=== PATIENT | female | born 1940 ===

== ENCOUNTER 2017-03-22 12:59 | Inpatient (IN) | payer OTHER ==
[~2017-03-22] VITALS: Ht 165.1 cm; Wt 84.6 kg
[2017-03-22 17:06] LABS: ANION GAP 13 MEQ/L (2-14); CHLORIDE 96 MEQ/L (99-109); GFR ESTIMATE (CALCULATED) > 59 mL/min/; GLUCOSE 245 mg/dL (70-99); POTASSIUM 3.8 MEQ/L (3.7-5.4); SAMPLE HEMOLYSIS CHECK 0; SAMPLE ICTERIC CHECK 0; SAMPLE LIPEMIA CHECK 0; SODIUM 130 MEQ/L (136-147); UREA NITROGEN (BUN) 16 mg/dL (9-23)
[2017-03-22 18:00] VITALS: BP 143/58
[2017-03-22 18:15] VITALS: BP 109/55
[2017-03-22 19:00] VITALS: BP 143/45
[2017-03-22 19:13] LABS: METH RESISTANT S AUREUS PCR NEGATIVE (NEGATIVE)
[2017-03-22 19:19] LABS: PROBE CHECK PASS; SPECIMEN PROCESSING CONTROL PASS
[2017-03-22 20:00] VITALS: BP 138/60
[2017-03-22 20:43] LABS: EOSINOPHIL (%) 0.1 % (0-5); HEMATOCRIT 28.9 % (36.0-46.0); IMMATURE GRANULOCYTE (%) 0.7 % (0.0-0.7); IMMATURE GRANULOCYTE COUNT 0.1 K/uL; LYMPHOCYTE COUNT 1.7 K/uL (1.0-2.8); MCH 26.6 PG (29.0-34.0); MCHC 32.2 G/DL (30.0-36.0); MCV 82.8 FL (83-99); MEAN PLAT.VOLUME 10.3 uM^3 (9.5-12.4); MONOCYTE (%) 8.4 % (3-12); MONOCYTE COUNT 1.6 K/uL (0-0.8); NEUTROPHIL (%) 81.3 % (45-76); NRBC (%) 0.1 /100 WBC (0-0); PLATELET COUNT 320 K/uL (156-360); RBC DIS.WIDTH-CV 14.3 % (11.8-14.6); RBC DIS.WIDTH-SD 42.4 % (39-53); RED BLOOD COUNT 3.49 M/uL (3.80-5.20); WHITE BLOOD COUNT 18.5 K/uL (4.1-10.2)
[2017-03-22 20:59] LABS: ALKALINE PHOSPHATASE 64 IU/L (3-129); ANION GAP 12 MEQ/L (2-14); CHLORIDE 99 MEQ/L (99-109); GFR ESTIMATE (CALCULATED) > 59 mL/min/; GLUCOSE 276 mg/dL (70-99); MAGNESIUM 1.3 mg/dl (1.3-2.7); POTASSIUM 3.7 MEQ/L (3.7-5.4); SAMPLE HEMOLYSIS CHECK 0; SAMPLE ICTERIC CHECK 0; SAMPLE LIPEMIA CHECK 0; SODIUM 133 MEQ/L (136-147); TOTAL BILIRUBIN 0.5 MG/DL (0.0-1.0); UREA NITROGEN (BUN) 17 mg/dL (9-23)
[2017-03-22 20:59] LABS: COMMENTS - BLOOD GASES C+A+; DEVICE VENT; FI02 60 %; MECHANICAL RATE 16 resp/min; MODE AC; PCO2 32 mm Hg (35-45); PEEP 5 CM/H20; PO2 250 mm Hg (80-100); SITE LR; TIDAL VOLUME 400 ML; TOTAL RESP RATE 16 resp/min; pH 7.51 (7.35-7.45)
[2017-03-22 21:00] VITALS: BP 126/46
[2017-03-22 21:00] LABS: BASE EXCESS 2.5 mEq/L (-3 to +3); BICARBONATE 25.5 mEq/L (22-26); CARBOXY HGB 1.5 % (0-5); METHEMOGLOBIN 1.9 % (0-1.5)
[2017-03-22 22:00] VITALS: BP 114/43
[2017-03-23] VITALS (23 sets, daily range): BP systolic 128–165; BP diastolic 43–94
[2017-03-23 00:04] LABS: POINT-OF-CARE METER ID UU13113748
[2017-03-23 05:43] LABS: POINT-OF-CARE METER ID UU14174217
[2017-03-23 05:47] LABS: EOSINOPHIL (%) 0 % (0-5); HEMATOCRIT 29.9 % (36.0-46.0); IMMATURE GRANULOCYTE (%) 0.8 % (0.0-0.7); IMMATURE GRANULOCYTE COUNT 0.2 K/uL; INSTRUMENT ABS NEUTROPHIL CT 19.5 K/uL; LYMPHOCYTE COUNT 1.9 K/uL (1.0-2.8); MCH 26.8 PG (29.0-34.0); MCHC 32.8 G/DL (30.0-36.0); MCV 81.9 FL (83-99); MEAN PLAT.VOLUME 10.4 uM^3 (9.5-12.4); MONOCYTE (%) 11.4 % (3-12); MONOCYTE COUNT 2.8 K/uL (0-0.8); NEUTROPHIL (%) 79.7 % (45-76); NEUTROPHIL COUNT 19.5 K/uL (1.8-6.4); PLATELET COUNT 304 K/uL (156-360); RBC DIS.WIDTH-CV 14.6 % (11.8-14.6); RBC DIS.WIDTH-SD 42.7 % (39-53); RED BLOOD COUNT 3.65 M/uL (3.80-5.20); WHITE BLOOD COUNT 24.5 K/uL (4.1-10.2)
[2017-03-23 06:01] LABS: ANION GAP 12 MEQ/L (2-14); CHLORIDE 102 MEQ/L (99-109); GFR ESTIMATE (CALCULATED) > 59 mL/min/; GLUCOSE 268 mg/dL (70-99); POTASSIUM 4.1 MEQ/L (3.7-5.4); SAMPLE HEMOLYSIS CHECK 0; SAMPLE ICTERIC CHECK 0; SAMPLE LIPEMIA CHECK 0; SODIUM 139 MEQ/L (136-147); UREA NITROGEN (BUN) 16 mg/dL (9-23)
[2017-03-23 06:15] LABS: BICARBONATE 26.7 mEq/L (22-26); CARBOXY HGB 0 % (0-5); COMMENTS - BLOOD GASES C+A+; DEVICE VENT; FI02 40 %; MECHANICAL RATE 16 resp/min; METHEMOGLOBIN 0 % (0-1.5); MODE AC; PCO2 32 mm Hg (35-45); PEEP 5 CM/H20; PO2 152 mm Hg (80-100); SITE RR; TIDAL VOLUME 400 ML; TOTAL RESP RATE 18 resp/min; pH 7.53 (7.35-7.45)
[2017-03-23] MEDS ORDERED: SYNTHROID100 MCG PO (09:28)
[2017-03-23] MEDS ORDERED: COZAAR100 MG PO (09:28)
[2017-03-23] MEDS ORDERED: BISOPROLOL FUMAR5 MG PO (09:28)
[2017-03-23] MEDS ORDERED: LASIX20 MG PO (09:28)
[2017-03-23] MEDS ORDERED: TRAMADOL HCL50 MG PO (09:29)
[2017-03-23] MEDS ORDERED: MICRONASE5 MG PO (09:29)
[2017-03-23] MEDS ORDERED: MAGOX 400400 MG PO (09:29)
[2017-03-23] MEDS ORDERED: GLUCOPHAGE500 MG PO (09:29)
[2017-03-23 11:55] LABS: POINT-OF-CARE METER ID UU14174217
[2017-03-23 16:23] LABS: ADD MIUA? YES; BILIRUBIN NEGATIVE; BLOOD MODERATE; COLOR YELLOW ((YELLOW)); GLUCOSE (STRIP) NEGATIVE; KETONES 20; LEUKOCYTES NEGATIVE; NITRITE NEGATIVE; PROTEIN (STRIP) 100; SPECIFIC GRAVITY 1.019 (1.000-1.030); UROBILINOGEN 0.2 MG/DL (0.2-1.0)
[2017-03-23 16:30] LABS: BACTERIA NONE SEEN /HPF; EPITHELIAL CELLS NONE SEEN /HPF; MUCUS NONE SEEN /LPF; RED BLOOD CELLS 0-5 /HPF (0-5); WHITE BLOOD CELLS 0-5 /HPF (0-5)
[2017-03-23 18:34] LABS: POINT-OF-CARE METER ID UU14174217
[2017-03-23 23:58] LABS: POINT-OF-CARE METER ID UU14174217
[2017-03-24] VITALS (24 sets, daily range): BP systolic 130–176; BP diastolic 51–90
[2017-03-24 05:54] LABS: HEMATOCRIT 23.9 % (36.0-46.0); MCH 27.5 PG (29.0-34.0); MCHC 32.6 G/DL (30.0-36.0); MCV 84.2 FL (83-99); MEAN PLAT.VOLUME 10.6 uM^3 (9.5-12.4); PLATELET COUNT 263 K/uL (156-360)
[2017-03-24 05:55] LABS: RED BLOOD COUNT 2.84 M/uL (3.80-5.20)
[2017-03-24 06:01] LABS: ANION GAP 13 MEQ/L (2-14); CHLORIDE 109 MEQ/L (99-109); GFR ESTIMATE (CALCULATED) > 59 mL/min/; GLUCOSE 264 mg/dL (70-99); POTASSIUM 3.6 MEQ/L (3.7-5.4); SAMPLE HEMOLYSIS CHECK 0; SAMPLE ICTERIC CHECK 0; SAMPLE LIPEMIA CHECK 0; SODIUM 142 MEQ/L (136-147); UREA NITROGEN (BUN) 10 mg/dL (9-23)
[2017-03-24 06:23] LABS: POINT-OF-CARE METER ID UU13113803
[2017-03-24 12:12] LABS: POINT-OF-CARE METER ID UU13113803
[2017-03-24 18:36] LABS: POINT-OF-CARE METER ID UU13113803
[2017-03-25] VITALS (24 sets, daily range): BP systolic 142–199; BP diastolic 54–86
[2017-03-25 00:24] LABS: POINT-OF-CARE METER ID UU13113803
[2017-03-25 05:50] LABS: POINT-OF-CARE METER ID UU14174217; POINT-OF-CARE USER ID 606021424
[2017-03-25 08:51] LABS: HEMATOCRIT 24.4 % (36.0-46.0); MCH 26.7 PG (29.0-34.0); MCHC 31.6 G/DL (30.0-36.0); MCV 84.7 FL (83-99); MEAN PLAT.VOLUME 10.4 uM^3 (9.5-12.4); PLATELET COUNT 255 K/uL (156-360); RBC DIS.WIDTH-CV 15.3 % (11.8-14.6); RBC DIS.WIDTH-SD 47.5 % (39-53); RED BLOOD COUNT 2.88 M/uL (3.80-5.20); WHITE BLOOD COUNT 20.3 K/uL (4.1-10.2)
[2017-03-25 09:58] LABS: ANION GAP 14 MEQ/L (2-14); CHLORIDE 109 MEQ/L (99-109); GFR ESTIMATE (CALCULATED) > 59 mL/min/; GLUCOSE 224 mg/dL (70-99); POTASSIUM 3.9 MEQ/L (3.7-5.4); SAMPLE HEMOLYSIS CHECK 0; SAMPLE ICTERIC CHECK 0; SAMPLE LIPEMIA CHECK 0; SODIUM 140 MEQ/L (136-147); UREA NITROGEN (BUN) 11 mg/dL (9-23)
[2017-03-25 12:48] LABS: POINT-OF-CARE METER ID UU14314083
[2017-03-25 17:26] LABS: POINT-OF-CARE METER ID UU14174217
[2017-03-26] VITALS (24 sets, daily range): BP systolic 113–173; BP diastolic 45–82
[2017-03-26 00:54] LABS: POINT-OF-CARE METER ID UU14174217
[2017-03-26 05:43] LABS: POINT-OF-CARE METER ID UU13113731
[2017-03-26 05:45] LABS: HEMATOCRIT 23.8 % (36.0-46.0); MCH 26.5 PG (29.0-34.0); MCHC 31.5 G/DL (30.0-36.0); MCV 84.1 FL (83-99); MEAN PLAT.VOLUME 10.4 uM^3 (9.5-12.4); PLATELET COUNT 253 K/uL (156-360); RBC DIS.WIDTH-CV 15.4 % (11.8-14.6); RBC DIS.WIDTH-SD 47.2 % (39-53); RED BLOOD COUNT 2.83 M/uL (3.80-5.20); WHITE BLOOD COUNT 19.3 K/uL (4.1-10.2)
[2017-03-26 06:10] LABS: ALKALINE PHOSPHATASE 72 IU/L (3-129); ANION GAP 18 MEQ/L (2-14); CHLORIDE 109 MEQ/L (99-109); GFR ESTIMATE (CALCULATED) > 59 mL/min/; GLUCOSE 241 mg/dL (70-99); POTASSIUM 3.6 MEQ/L (3.7-5.4); SAMPLE HEMOLYSIS CHECK 0; SAMPLE ICTERIC CHECK 0; SAMPLE LIPEMIA CHECK 0; SODIUM 144 MEQ/L (136-147); TOTAL BILIRUBIN 0.7 MG/DL (0.0-1.0); UREA NITROGEN (BUN) 13 mg/dL (9-23)
[2017-03-26 12:44] LABS: POINT-OF-CARE METER ID UU14174217
[2017-03-26 18:20] LABS: POINT-OF-CARE METER ID UU13113748
[2017-03-27] VITALS (25 sets, daily range): BP systolic 119–195; BP diastolic 43–95
[2017-03-27 01:09] LABS: POINT-OF-CARE METER ID UU13113731
[2017-03-27 06:16] LABS: POINT-OF-CARE METER ID UU13113731
[2017-03-27 10:55] LABS: HEMATOCRIT 23.2 % (36.0-46.0); RED BLOOD COUNT 2.81 M/uL (3.80-5.20); WHITE BLOOD COUNT 15.7 K/uL (4.1-10.2)
[2017-03-27 10:56] LABS: EOSINOPHIL (%) 0.2 % (0-5); IMMATURE GRANULOCYTE COUNT 0.2 K/uL; INSTRUMENT ABS NEUTROPHIL CT 12.2 K/uL; LYMPHOCYTE COUNT 1.9 K/uL (1.0-2.8); MCH 26.7 PG (29.0-34.0); MCHC 32.3 G/DL (30.0-36.0); MCV 82.6 FL (83-99); MEAN PLAT.VOLUME 10.6 uM^3 (9.5-12.4); MONOCYTE (%) 8.2 % (3-12); MONOCYTE COUNT 1.3 K/uL (0-0.8); NEUTROPHIL (%) 78.1 % (45-76); NEUTROPHIL COUNT 12.2 K/uL (1.8-6.4); PLATELET COUNT 308 K/uL (156-360); RBC DIS.WIDTH-CV 15.3 % (11.8-14.6); RBC DIS.WIDTH-SD 45.9 % (39-53)
[2017-03-27 11:33] LABS: ANION GAP 10 MEQ/L (2-14); CHLORIDE 108 MEQ/L (99-109); GFR ESTIMATE (CALCULATED) > 59 mL/min/; GLUCOSE 378 mg/dL (70-99); POTASSIUM 3.2 MEQ/L (3.7-5.4); SAMPLE HEMOLYSIS CHECK 0; SAMPLE ICTERIC CHECK 0; SAMPLE LIPEMIA CHECK 0; SODIUM 142 MEQ/L (136-147); UREA NITROGEN (BUN) 20 mg/dL (9-23)
[2017-03-27 12:03] LABS: POINT-OF-CARE METER ID UU14162636
[2017-03-27 18:00] LABS: POINT-OF-CARE METER ID UU14162636
[2017-03-27 22:21] LABS: ADD MIUA? YES; BILIRUBIN NEGATIVE; BLOOD NEGATIVE; COLOR AMBER ((YELLOW)); GLUCOSE (STRIP) 150; KETONES NEGATIVE; LEUKOCYTES LARGE; NITRITE NEGATIVE; PROTEIN (STRIP) 100; SPECIFIC GRAVITY 1.025 (1.000-1.030)
[2017-03-27 23:03] LABS: BACTERIA 3+ /HPF; CELLULAR CASTS 0-5 /LPF; EPITHELIAL CELLS RARE /HPF; HYALINE CASTS 0-5 /LPF; MUCUS TRACE /LPF; RED BLOOD CELLS 0-5 /HPF (0-5); UCUL ADDED? YES; WHITE BLOOD CELLS TNTC /HPF (0-5); WHITE BLOOD CELLS CLUMP MANY /HPF (0-5)
[2017-03-28] VITALS (24 sets, daily range): BP systolic 126–182; BP diastolic 46–76
[2017-03-28 00:44] LABS: POINT-OF-CARE METER ID UU14162636
[2017-03-28 03:03] LABS: EOSINOPHIL (%) 0.2 % (0-5); HEMATOCRIT 22.8 % (36.0-46.0); IMMATURE GRANULOCYTE (%) 1.2 % (0.0-0.7); IMMATURE GRANULOCYTE COUNT 0.3 K/uL; INSTRUMENT ABS NEUTROPHIL CT 15.9 K/uL; LYMPHOCYTE COUNT 2.5 K/uL (1.0-2.8); MCH 26.4 PG (29.0-34.0); MCV 82.6 FL (83-99); MEAN PLAT.VOLUME 10.5 uM^3 (9.5-12.4); MONOCYTE (%) 8.6 % (3-12); MONOCYTE COUNT 1.8 K/uL (0-0.8); NEUTROPHIL (%) 77.7 % (45-76); NEUTROPHIL COUNT 15.9 K/uL (1.8-6.4); PLATELET COUNT 293 K/uL (156-360); RBC DIS.WIDTH-CV 15.8 % (11.8-14.6); RBC DIS.WIDTH-SD 46.9 % (39-53); RED BLOOD COUNT 2.76 M/uL (3.80-5.20); WHITE BLOOD COUNT 20.4 K/uL (4.1-10.2)
[2017-03-28 03:16] LABS: MAGNESIUM 1.3 mg/dL (1.3-2.7)
[2017-03-28 03:17] LABS: CHLORIDE 111 mEq/L (99-109); GLUCOSE 314 mg/dL (70-99); POTASSIUM 3.3 mEq/L (3.7-5.4); SODIUM 143 mEq/L (136-147)
[2017-03-28 03:19] LABS: ANION GAP 12 MEQ/L (2-14)
[2017-03-28 03:21] LABS: GFR ESTIMATE (CALCULATED) > 59 mL/min/
[2017-03-28 03:22] LABS: UREA NITROGEN (BUN) 19 mg/dL (9-23)
[2017-03-28 04:20] LABS: HDL CHOLESTEROL 17 MG/DL (Desirable>=50); LDL CHOLESTEROL 77 mg/dL (Desirable<100); NON-HDL CHOLESTEROL 95 mg/dL (Desirable<160); SAMPLE HEMOLYSIS CHECK 0; SAMPLE ICTERIC CHECK 0; SAMPLE LIPEMIA CHECK 0; TOTAL CHOLESTEROL 112 mg/dL (Desirable<200); TRIGLYCERIDES 91 MG/DL (Normal: <150)
[2017-03-28 05:23] LABS: BASE EXCESS 1.8 mEq/L (-3 to +3); BICARBONATE 24.5 mEq/L (22-26); CARBOXY HGB 0.4 % (0-5); COMMENTS - BLOOD GASES C+A+; DEVICE VENT; FI02 30 %; MECHANICAL RATE 16 resp/min; METHEMOGLOBIN 0 % (0-1.5); MODE AC; PCO2 30 mm Hg (35-45); PO2 73 mm Hg (80-100); SITE RR; pH 7.52 (7.35-7.45)
[2017-03-28 05:24] LABS: PEEP 5 CM/H20; TIDAL VOLUME 500 ML; TOTAL RESP RATE 16 resp/min
[2017-03-28 06:02] LABS: POINT-OF-CARE METER ID UU14162636
[2017-03-28 08:32] LABS: Estimated Average Glucose 166 mg/dL (70-123); HEMOGLOBIN A1c (GLYCOHEMOGLOB) 7.4 % HGB (Below 5.7)
[2017-03-28 12:28] LABS: POINT-OF-CARE METER ID UU14162636
[2017-03-28 14:55] LABS: POINT-OF-CARE METER ID UU14162636
[2017-03-28 16:03] LABS: POINT-OF-CARE METER ID UU14162636
[2017-03-28 16:07] LABS: ANION GAP 9 MEQ/L (2-14); CHLORIDE 110 MEQ/L (99-109); POTASSIUM 3.4 MEQ/L (3.7-5.4); SAMPLE HEMOLYSIS CHECK 0; SAMPLE ICTERIC CHECK 0; SAMPLE LIPEMIA CHECK 0; SODIUM 142 MEQ/L (136-147)
[2017-03-28 16:12] LABS: GFR ESTIMATE (CALCULATED) > 59 mL/min/; GLUCOSE 275 mg/dL (70-99); UREA NITROGEN (BUN) 16 mg/dL (9-23)
[2017-03-28 17:10] LABS: POINT-OF-CARE METER ID UU14162636
[2017-03-28 18:10] LABS: POINT-OF-CARE METER ID UU14162636
[2017-03-28 19:27] LABS: POINT-OF-CARE METER ID UU14162636
[2017-03-28 20:03] LABS: ANION GAP 9 MEQ/L (2-14); CHLORIDE 111 MEQ/L (99-109); POTASSIUM 3.6 MEQ/L (3.7-5.4); SAMPLE HEMOLYSIS CHECK 0; SAMPLE ICTERIC CHECK 0; SAMPLE LIPEMIA CHECK 0; SODIUM 143 MEQ/L (136-147)
[2017-03-28 20:09] LABS: GFR ESTIMATE (CALCULATED) > 59 mL/min/; GLUCOSE 221 mg/dL (70-99); UREA NITROGEN (BUN) 17 mg/dL (9-23)
[2017-03-28 20:40] LABS: POINT-OF-CARE METER ID UU14162636
[2017-03-28 21:39] LABS: POINT-OF-CARE METER ID UU14162636
[2017-03-28 22:36] LABS: POINT-OF-CARE METER ID UU14162636
[2017-03-28 23:31] LABS: POINT-OF-CARE METER ID UU14162636
[2017-03-29] VITALS (24 sets, daily range): BP systolic 130–181; BP diastolic 49–72
[2017-03-29 00:14] LABS: POINT-OF-CARE METER ID UU14208751
[2017-03-29 00:57] LABS: CHLORIDE 113 mEq/L (99-109); POTASSIUM 3.4 mEq/L (3.7-5.4); SODIUM 141 mEq/L (136-147)
[2017-03-29 00:59] LABS: GLUCOSE 161 mg/dL (70-99)
[2017-03-29 01:00] LABS: ANION GAP 8 MEQ/L (2-14)
[2017-03-29 01:03] LABS: GFR ESTIMATE (CALCULATED) > 59 mL/min/
[2017-03-29 01:04] LABS: UREA NITROGEN (BUN) 17 mg/dL (9-23)
[2017-03-29 01:22] LABS: POINT-OF-CARE METER ID UU13113748; POINT-OF-CARE USER ID 609231305
[2017-03-29 02:33] LABS: POINT-OF-CARE METER ID UU13113748
[2017-03-29 03:34] LABS: POINT-OF-CARE METER ID UU13113748
[2017-03-29 04:32] LABS: POINT-OF-CARE METER ID UU13113748
[2017-03-29 05:24] LABS: ANION GAP 9 MEQ/L (2-14); CHLORIDE 111 MEQ/L (99-109); POTASSIUM 3.9 MEQ/L (3.7-5.4); SAMPLE HEMOLYSIS CHECK 0; SAMPLE ICTERIC CHECK 0; SAMPLE LIPEMIA CHECK 0; SODIUM 143 MEQ/L (136-147)
[2017-03-29 05:30] LABS: GFR ESTIMATE (CALCULATED) > 59 mL/min/; GLUCOSE 164 mg/dL (70-99); UREA NITROGEN (BUN) 20 mg/dL (9-23)
[2017-03-29 06:00] LABS: HEMATOCRIT 23.5 % (36.0-46.0); MCH 26.9 PG (29.0-34.0); MCHC 31.9 G/DL (30.0-36.0); MCV 84.2 FL (83-99); MEAN PLAT.VOLUME 11.6 uM^3 (9.5-12.4); PLATELET COUNT 284 K/uL (156-360); RBC DIS.WIDTH-CV 16.1 % (11.8-14.6); RBC DIS.WIDTH-SD 48.9 % (39-53); RED BLOOD COUNT 2.79 M/uL (3.80-5.20); WHITE BLOOD COUNT 18.5 K/uL (4.1-10.2)
[2017-03-29 06:31] LABS: POINT-OF-CARE METER ID UU13113748
[2017-03-29 07:33] LABS: POINT-OF-CARE METER ID UU13113748
[2017-03-29 08:16] LABS: POINT-OF-CARE METER ID UU13113748
[2017-03-29 08:45] LABS: ANION GAP 9 MEQ/L (2-14); CHLORIDE 111 MEQ/L (99-109); GFR ESTIMATE (CALCULATED) > 59 mL/min/; GLUCOSE 163 mg/dL (70-99); POTASSIUM 3.7 MEQ/L (3.7-5.4); SAMPLE HEMOLYSIS CHECK 0; SAMPLE ICTERIC CHECK 0; SAMPLE LIPEMIA CHECK 0; SODIUM 144 MEQ/L (136-147); UREA NITROGEN (BUN) 22 mg/dL (9-23)
[2017-03-29 10:20] LABS: POINT-OF-CARE METER ID UU13113748
[2017-03-29 11:28] LABS: POINT-OF-CARE METER ID UU13113748
[2017-03-29 12:25] LABS: POINT-OF-CARE METER ID UU13113748
[2017-03-29 12:56] LABS: ANION GAP 8 MEQ/L (2-14); CHLORIDE 109 MEQ/L (99-109); GFR ESTIMATE (CALCULATED) > 59 mL/min/; GLUCOSE 142 mg/dL (70-99); POTASSIUM 3.6 MEQ/L (3.7-5.4); SAMPLE HEMOLYSIS CHECK 0; SAMPLE ICTERIC CHECK 0; SAMPLE LIPEMIA CHECK 0; SODIUM 142 MEQ/L (136-147); UREA NITROGEN (BUN) 22 mg/dL (9-23)
[2017-03-29 18:17] LABS: POINT-OF-CARE METER ID UU13113748
[2017-03-30] VITALS (23 sets, daily range): BP systolic 104–171; BP diastolic 41–99
[2017-03-30 00:14] LABS: POINT-OF-CARE METER ID UU13113748
[2017-03-30 05:44] LABS: BASE EXCESS 4.6 mEq/L (-3 to +3); BICARBONATE 27.1 mEq/L (22-26); CARBOXY HGB 0 % (0-5); METHEMOGLOBIN 0.2 % (0-1.5); PCO2 31 mm Hg (35-45); pH 7.55 (7.35-7.45)
[2017-03-30 05:45] LABS: COMMENTS - BLOOD GASES A+C+; DEVICE VENT; FI02 30 %; MECHANICAL RATE 13 resp/min; MODE A/C; PEEP 5 CM/H20; PO2 55 mm Hg (80-100); SITE RR; TIDAL VOLUME 500 ML; TOTAL RESP RATE 14 resp/min
[2017-03-30 06:19] LABS: POINT-OF-CARE METER ID UU14314082
[2017-03-30 07:12] LABS: EOSINOPHIL (%) 0.7 % (0-5); EOSINOPHIL COUNT 0.1 K/uL (0-0.3); HEMATOCRIT 24.3 % (36.0-46.0); IMMATURE GRANULOCYTE (%) 3.4 % (0.0-0.7); IMMATURE GRANULOCYTE COUNT 0.6 K/uL; INSTRUMENT ABS NEUTROPHIL CT 13.8 K/uL; LYMPHOCYTE COUNT 1.8 K/uL (1.0-2.8); MCH 25.9 PG (29.0-34.0); MCHC 31.3 G/DL (30.0-36.0); MCV 82.9 FL (83-99); MONOCYTE (%) 6.7 % (3-12); MONOCYTE COUNT 1.2 K/uL (0-0.8); NEUTROPHIL (%) 78.7 % (45-76); NEUTROPHIL COUNT 13.8 K/uL (1.8-6.4); NRBC (%) 0.2 /100 WBC (0-0); RBC DIS.WIDTH-CV 15.9 % (11.8-14.6); RBC DIS.WIDTH-SD 47.5 % (39-53); RED BLOOD COUNT 2.93 M/uL (3.80-5.20); WHITE BLOOD COUNT 17.5 K/uL (4.1-10.2)
[2017-03-30 07:25] LABS: ANION GAP 11 MEQ/L (2-14); CHLORIDE 108 MEQ/L (99-109); GFR ESTIMATE (CALCULATED) > 59 mL/min/; GLUCOSE 146 mg/dL (70-99); POTASSIUM 4.1 MEQ/L (3.7-5.4); SAMPLE HEMOLYSIS CHECK 0; SAMPLE ICTERIC CHECK 0; SAMPLE LIPEMIA CHECK 0; SODIUM 142 MEQ/L (136-147); UREA NITROGEN (BUN) 24 mg/dL (9-23)
[2017-03-30 07:33] LABS: PLAT.SUFFICIENCY ADEQUATE; PLATELET COUNT UNABLE TO REPORT K/uL (156-360)
[2017-03-30 07:43] LABS: VANCOMYCIN, TROUGH 3.9 MCG/ML (10-20)
[2017-03-30 12:12] LABS: POINT-OF-CARE METER ID UU14314082
[2017-03-30 17:22] LABS: POINT-OF-CARE METER ID UU14314082
[2017-03-31] VITALS (20 sets, daily range): BP systolic 116–144; BP diastolic 43–60
[2017-03-31 00:43] LABS: POINT-OF-CARE METER ID UU13113803
[2017-03-31 05:06] LABS: BASE EXCESS 3.1 mEq/L (-3 to +3); BICARBONATE 25.9 mEq/L (22-26); CARBOXY HGB 0 % (0-5); COMMENTS - BLOOD GASES C+A+; DEVICE VENT; FI02 30 %; MECHANICAL RATE 10 resp/min; METHEMOGLOBIN 0.4 % (0-1.5); MODE AC; PCO2 31 mm Hg (35-45); PEEP 5 CM/H20; PO2 63 mm Hg (80-100); SITE RR; TIDAL VOLUME 500 ML; TOTAL RESP RATE 16 resp/min; pH 7.53 (7.35-7.45)
[2017-03-31 06:22] LABS: POINT-OF-CARE METER ID UU14314082
[2017-03-31 07:17] LABS: EOSINOPHIL (%) 1.1 % (0-5); EOSINOPHIL COUNT 0.2 K/uL (0-0.3); HEMATOCRIT 21.2 % (36.0-46.0); IMMATURE GRANULOCYTE (%) 3.8 % (0.0-0.7); IMMATURE GRANULOCYTE COUNT 0.5 K/uL; INSTRUMENT ABS NEUTROPHIL CT 10.2 K/uL; LYMPHOCYTE COUNT 1.8 K/uL (1.0-2.8); MCH 26.7 PG (29.0-34.0); MCHC 32.5 G/DL (30.0-36.0); MCV 82.2 FL (83-99); MONOCYTE (%) 8.4 % (3-12); MONOCYTE COUNT 1.2 K/uL (0-0.8); NEUTROPHIL (%) 73.6 % (45-76); NEUTROPHIL COUNT 10.2 K/uL (1.8-6.4); PLATELET COUNT 331 K/uL (156-360); RBC DIS.WIDTH-CV 15.9 % (11.8-14.6); RBC DIS.WIDTH-SD 47.2 % (39-53); RED BLOOD COUNT 2.58 M/uL (3.80-5.20); WHITE BLOOD COUNT 13.8 K/uL (4.1-10.2)
[2017-03-31 07:53] LABS: ANION GAP 7 MEQ/L (2-14); CHLORIDE 106 MEQ/L (99-109); GFR ESTIMATE (CALCULATED) > 59 mL/min/; GLUCOSE 134 mg/dL (70-99); POTASSIUM 4.3 MEQ/L (3.7-5.4); SAMPLE HEMOLYSIS CHECK 0; SAMPLE ICTERIC CHECK 0; SAMPLE LIPEMIA CHECK 0; SODIUM 138 MEQ/L (136-147); UREA NITROGEN (BUN) 28 mg/dL (9-23)
[2017-03-31 12:10] LABS: POINT-OF-CARE METER ID UU13113803
[2017-03-31 15:31] LABS: HEMATOCRIT 24.7 % (36.0-46.0); MCV 81.8 FL (83-99)
[2017-03-31 15:48] LABS: BASE EXCESS 3.2 mEq/L (-3 to +3); BICARBONATE 25.9 mEq/L (22-26); CARBOXY HGB 0 % (0-5); METHEMOGLOBIN 0.2 % (0-1.5); PCO2 31 mm Hg (35-45); PO2 65 mm Hg (80-100); SITE RR; pH 7.53 (7.35-7.45)
[2017-03-31 15:49] LABS: DEVICE VENT; FI02 30 %; MECHANICAL RATE 8 resp/min; MODE SIMV; PRES. SUPPORT 12 CM/H2O; TIDAL VOLUME 500 ML; TOTAL RESP RATE 18 resp/min
[2017-03-31 15:52] LABS: PEEP 5 CM/H20
[2017-03-31 17:54] LABS: POINT-OF-CARE METER ID UU14208751
[2017-03-31 22:53] LABS: POINT-OF-CARE METER ID UU14314083; POINT-OF-CARE USER ID PHATLC
[2017-04-01] VITALS (15 sets, daily range): BP systolic 112–160; BP diastolic 46–76
[2017-04-01 01:26] LABS: POINT-OF-CARE METER ID UU14314083; POINT-OF-CARE USER ID PHATLC
[2017-04-01 06:07] LABS: ANION GAP 10 MEQ/L (2-14); CHLORIDE 105 MEQ/L (99-109); GFR ESTIMATE (CALCULATED) > 59 mL/min/; GLUCOSE 129 mg/dL (70-99); POTASSIUM 4.7 MEQ/L (3.7-5.4); SAMPLE HEMOLYSIS CHECK 0; SAMPLE ICTERIC CHECK 0; SAMPLE LIPEMIA CHECK 0; SODIUM 138 MEQ/L (136-147); UREA NITROGEN (BUN) 27 mg/dL (9-23)
[2017-04-01 07:32] LABS: HEMATOCRIT 26.8 % (36.0-46.0); MCH 27.2 PG (29.0-34.0); MCHC 33.2 G/DL (30.0-36.0); MEAN PLAT.VOLUME 10.2 uM^3 (9.5-12.4); NRBC (%) 0.2 /100 WBC (0-0); PLATELET COUNT 353 K/uL (156-360); RBC DIS.WIDTH-CV 15.7 % (11.8-14.6); RBC DIS.WIDTH-SD 45.9 % (39-53); WHITE BLOOD COUNT 13.3 K/uL (4.1-10.2)
[2017-04-01 07:33] LABS: RED BLOOD COUNT 3.27 M/uL (3.80-5.20)
[2017-04-01 07:54] LABS: ABS NEUTROPHIL COUNT 10.1; ANISOCYTOSIS 1+; ATYPICAL LYMPHOCYTE 2.6 %; BAND NEUTROPHILS 3.5 % (0-8.0); EOSINOPHIL ABS CT 0.1; EOSINOPHILS 0.8 % (0-5.0); INSTRUMENT ABS NEUTROPHIL CT 9.4 K/uL; LYMPHOCYTES 12.2 % (15.0-45.0); MICROCYTOSIS 1+; MYELOCYTES 0.9 %; NUCLEATED RBC'S 0.9; PLAT.SUFFICIENCY ADEQUATE; POLYCHROMASIA 1+; SEG.NEUTROPHILS 72.2 % (46.0-76.0)
[2017-04-01 08:09] LABS: POINT-OF-CARE METER ID UU14314083
[2017-04-01 13:19] LABS: POINT-OF-CARE METER ID UU14314083
[2017-04-01 18:00] LABS: POINT-OF-CARE METER ID UU14208751
[2017-04-01 22:00] LABS: POINT-OF-CARE METER ID UU14208751; POINT-OF-CARE USER ID PHATLC
[2017-04-02] VITALS (13 sets, daily range): BP systolic 117–165; BP diastolic 42–64
[2017-04-02 01:30] LABS: POINT-OF-CARE METER ID UU14162636; POINT-OF-CARE USER ID PHATLC
[2017-04-02 05:46] LABS: BASE EXCESS 2.6 mEq/L (-3 to +3); BICARBONATE 25.1 mEq/L (22-26); CARBOXY HGB 0 % (0-5); COMMENTS - BLOOD GASES A+C+; DEVICE VENT; FI02 30 %; MECHANICAL RATE 8 resp/min; METHEMOGLOBIN 0.4 % (0-1.5); MODE SIMV; PCO2 30 mm Hg (35-45); PEEP 5 CM/H20; PO2 65 mm Hg (80-100); PRES. SUPPORT 12 CM/H2O; SITE RR; TIDAL VOLUME 400 ML; TOTAL RESP RATE 16 resp/min; pH 7.53 (7.35-7.45)
[2017-04-02 06:11] LABS: POINT-OF-CARE METER ID UU14162636; POINT-OF-CARE USER ID PHATLC
[2017-04-02 07:55] LABS: HEMATOCRIT 24.7 % (36.0-46.0); MCH 26.5 PG (29.0-34.0); MCV 82.9 FL (83-99); RBC DIS.WIDTH-CV 15.9 % (11.8-14.6); RBC DIS.WIDTH-SD 47.5 % (39-53); RED BLOOD COUNT 2.98 M/uL (3.80-5.20); WHITE BLOOD COUNT 11.2 K/uL (4.1-10.2)
[2017-04-02 08:25] LABS: ABS NEUTROPHIL COUNT 8.4; BAND NEUTROPHILS 1.8 % (0-8.0); EOSINOPHIL ABS CT 0.1; EOSINOPHILS 0.9 % (0-5.0); INSTRUMENT ABS NEUTROPHIL CT 7.6 K/uL; LYMPHOCYTES 14.2 % (15.0-45.0); MEAN PLAT.VOLUME 10.8 uM^3 (9.5-12.4); METAMYELOCYTES 2.6 %; PLAT.SUFFICIENCY ADEQUATE; PLATELET COUNT 316 K/uL (156-360); SEG.NEUTROPHILS 73.4 % (46.0-76.0); SMUDGE CELLS 6.2
[2017-04-02 13:16] LABS: POINT-OF-CARE METER ID UU14208751
[2017-04-02 18:01] LABS: POINT-OF-CARE METER ID UU14208751
[2017-04-02 23:15] LABS: POINT-OF-CARE METER ID UU14208751; POINT-OF-CARE USER ID PHATLC
[2017-04-03] VITALS (22 sets, daily range): BP systolic 113–171; BP diastolic 46–82
[2017-04-03 00:05] LABS: POINT-OF-CARE METER ID UU14208751; POINT-OF-CARE USER ID PHATLC
[2017-04-03 04:55] LABS: CHLORIDE 103 mEq/L (99-109); POTASSIUM 5.3 mEq/L (3.7-5.4)
[2017-04-03 04:56] LABS: GLUCOSE 125 mg/dL (70-99)
[2017-04-03 04:58] LABS: ANION GAP 8 MEQ/L (2-14)
[2017-04-03 05:00] LABS: GFR ESTIMATE (CALCULATED) > 59 mL/min/
[2017-04-03 05:01] LABS: SODIUM 131 mEq/L (136-147); UREA NITROGEN (BUN) 24 mg/dL (9-23)
[2017-04-03 05:59] LABS: POINT-OF-CARE METER ID UU14314082; POINT-OF-CARE USER ID PHATLC
[2017-04-03 13:03] LABS: POINT-OF-CARE METER ID UU14208751
[2017-04-03 17:12] LABS: POINT-OF-CARE METER ID UU14208751
[2017-04-04] VITALS (20 sets, daily range): BP systolic 104–148; BP diastolic 43–76
[2017-04-04 00:19] LABS: POINT-OF-CARE METER ID UU14314082
[2017-04-04 06:00] LABS: POINT-OF-CARE METER ID UU13113803
[2017-04-04 13:03] LABS: POINT-OF-CARE METER ID UU14208751
[2017-04-04 17:41] LABS: POINT-OF-CARE METER ID UU14208751
[2017-04-04 21:18] LABS: POINT-OF-CARE METER ID UU14208751
[2017-04-05] VITALS (24 sets, daily range): BP systolic 93–178; BP diastolic 38–63
[2017-04-05 00:26] LABS: POINT-OF-CARE METER ID UU14208751
[2017-04-05 05:54] LABS: POINT-OF-CARE METER ID UU14162636
[2017-04-05 12:46] LABS: POINT-OF-CARE METER ID UU14208751
[2017-04-05 17:13] LABS: POINT-OF-CARE METER ID UU14208751
[2017-04-05 23:57] LABS: POINT-OF-CARE METER ID UU14208751
[2017-04-06] VITALS (24 sets, daily range): BP systolic 115–188; BP diastolic 44–83
[2017-04-06 05:41] LABS: POINT-OF-CARE METER ID UU14162636
[2017-04-06 06:43] LABS: HEMATOCRIT 28.3 % (36.0-46.0); MCH 25.7 PG (29.0-34.0); MCHC 30.4 G/DL (30.0-36.0); MCV 84.7 FL (83-99); MEAN PLAT.VOLUME 10.1 uM^3 (9.5-12.4); RBC DIS.WIDTH-CV 15.9 % (11.8-14.6); RBC DIS.WIDTH-SD 48.9 % (39-53); RED BLOOD COUNT 3.34 M/uL (3.80-5.20); WHITE BLOOD COUNT 11.1 K/uL (4.1-10.2)
[2017-04-06 06:47] LABS: PLATELET COUNT 436 K/uL (156-360)
[2017-04-06 07:03] LABS: GLUCOSE 124 mg/dL (70-99); UREA NITROGEN (BUN) 27 mg/dL (9-23)
[2017-04-06 07:04] LABS: ALKALINE PHOSPHATASE 85 IU/L (3-129); ANION GAP 7 MEQ/L (2-14); CHLORIDE 105 MEQ/L (99-109); GFR ESTIMATE (CALCULATED) > 59 mL/min/; POTASSIUM 4.8 MEQ/L (3.7-5.4); SAMPLE HEMOLYSIS CHECK 0; SAMPLE ICTERIC CHECK 0; SAMPLE LIPEMIA CHECK 0; SODIUM 136 MEQ/L (136-147); TOTAL BILIRUBIN 0.2 MG/DL (0.0-1.0)
[2017-04-06 07:47] LABS: ABS NEUTROPHIL COUNT 8.9; ATYPICAL LYMPHOCYTE 0.9 %; BAND NEUTROPHILS 13.4 % (0-8.0); EOSINOPHIL ABS CT 0; INSTRUMENT ABS NEUTROPHIL CT 7.4 K/uL; LYMPHOCYTES 7.1 % (15.0-45.0); METAMYELOCYTES 2.7 %; NUCLEATED RBC'S 1.8; PLAT.SUFFICIENCY ADEQUATE
[2017-04-06 12:15] LABS: POINT-OF-CARE METER ID UU13113731; POINT-OF-CARE USER ID PHATLC
[2017-04-06 19:30] LABS: POINT-OF-CARE METER ID UU13113731
[2017-04-07] VITALS (15 sets, daily range): BP systolic 115–176; BP diastolic 45–77
[2017-04-07 01:43] LABS: POINT-OF-CARE METER ID UU13113731; POINT-OF-CARE USER ID 606021424
[2017-04-07 05:50] LABS: POINT-OF-CARE METER ID UU14314082
[2017-04-07 13:34] LABS: POINT-OF-CARE METER ID UU14314082
[2017-04-07 19:38] LABS: POINT-OF-CARE METER ID UU14117124
[2017-04-08 00:18] VITALS: BP 162/72
[2017-04-08 00:28] LABS: POINT-OF-CARE METER ID UU14117124
[2017-04-08 00:51] VITALS: BP 156/73
[2017-04-08 01:28] LABS: BASE EXCESS 4.6 mEq/L (-3 to +3); BICARBONATE 28.2 mEq/L (22-26); CARBOXY HGB 0 % (0-5); METHEMOGLOBIN 0.5 % (0-1.5); PO2 72 mm Hg (80-100); pH 7.49 (7.35-7.45)
[2017-04-08 01:29] LABS: COMMENTS - BLOOD GASES C+; DEVICE NRM; FI02 90 %; O2 FLOW 15 L/MIN; PCO2 37 mm Hg (35-45); SITE LR
[2017-04-08 01:39] LABS: POINT-OF-CARE METER ID UU14188577
[2017-04-08 01:56] LABS: INTER. NORMALIZED RATIO 1.1; PROTHROMBIN TIME 12.8 SEC (10.2-12.9)
[2017-04-08 01:57] LABS: HEMATOCRIT 35.1 % (36.0-46.0); MCH 26.6 PG (29.0-34.0); MCHC 31.3 G/DL (30.0-36.0); MCV 84.8 FL (83-99); RBC DIS.WIDTH-CV 15.8 % (11.8-14.6); RBC DIS.WIDTH-SD 48.4 % (39-53); RED BLOOD COUNT 4.14 M/uL (3.80-5.20); WHITE BLOOD COUNT 11.2 K/uL (4.1-10.2)
[2017-04-08 01:59] LABS: PTT 21.8 SEC (25-37)
[2017-04-08 02:05] LABS: CHLORIDE 105 mEq/L (99-109); POTASSIUM 5.6 mEq/L (3.7-5.4); SODIUM 137 mEq/L (136-147)
[2017-04-08 02:07] LABS: GLUCOSE 180 mg/dL (70-99)
[2017-04-08 02:08] LABS: ANION GAP 11 MEQ/L (2-14)
[2017-04-08 02:11] LABS: GFR ESTIMATE (CALCULATED) > 59 mL/min/; UREA NITROGEN (BUN) 21 mg/dL (9-23)
[2017-04-08 02:13] LABS: TROP-I INTERPRETATION NEGATIVE; TROPONIN-I < 0.01 ng/mL (0.0-0.30)
[2017-04-08 02:53] LABS: PLATELET CLUMPS PRESENT - PLATELET COUNT APPEARS ADQ.
[2017-04-08 04:28] LABS: PLATELET COUNT UNABLE TO REPORT K/uL (156-360)
[2017-04-08 06:23] LABS: POINT-OF-CARE METER ID UU14188577
[2017-04-08 08:01] VITALS: BP 119/58
[2017-04-08 11:47] VITALS: BP 122/57
[2017-04-10 07:15] VITALS: BP 155/70
[2017-04-11 14:45] VITALS: BP 123/58
== END 2017-04-12 04:20 | DRG 25 ==
LOC: EME 12:59 → SDC 13:42 → ENRESERV 17:13 → 4WEST 17:14 → 2SOUTH 17:14 → 3EAST 17:14 → 4WEST 17:39 → CANRESERV 04-07 09:27 → ENRESERV 04-07 09:27 → 3EAST 04-07 16:47 → ENRESERV 04-09 14:09 → 5EAST 04-10 14:55 → CANRESERV 04-10 14:59 → ENRESERV 04-10 14:59 → 5EAST 04-12 04:20
PROVIDERS: Hospitalist; Internal Medicine; Internal Medicine Critical Care Medicine; Internal Medicine Pulmonary Disease; Neurological Surgery; Obstetrics & Gynecology; Specialist; Surgery
PROC: 00C40ZZ Extirpation of Matter from Intracranial Subdural Space, Open Approach (ICD-10-PCS; principal; 2017-03-22)
PROC: 5A1955Z Respiratory Ventilation, Greater than 96 Consecutive Hours (ICD-10-PCS; principal; 2017-03-22)
PROC: 30233N1 Transfusion of Nonautologous Red Blood Cells into Peripheral Vein, Percutaneous Approach (ICD-10-PCS; 2017-03-31)
DX: R40.2433 Glasgow coma scale score 3-8, at hospital admission; W06.XXXA Fall from bed, initial encounter; J96.01 Acute respiratory failure with hypoxia; J69.0 Pneumonitis due to inhalation of food and vomit; G93.6 Cerebral edema; A41.9 Sepsis, unspecified organism; N30.00 Acute cystitis without hematuria; B96.20 Unspecified Escherichia coli [E. coli] as the cause of diseases classified elsewhere; E46 Unspecified protein-calorie malnutrition; T17.590A Other foreign object in bronchus causing asphyxiation, initial encounter; E11.610 Type 2 diabetes mellitus with diabetic neuropathic arthropathy; R56.9 Unspecified convulsions; Z66 Do not resuscitate; Z51.5 Encounter for palliative care; D62 Acute posthemorrhagic anemia; E11.65 Type 2 diabetes mellitus with hyperglycemia; E87.2 Acidosis; E87.3 Alkalosis; E83.39 Other disorders of phosphorus metabolism; E87.5 Hyperkalemia; G89.29 Other chronic pain; I10 Essential (primary) hypertension; E78.00 Pure hypercholesterolemia, unspecified; E87.6 Hypokalemia; E03.9 Hypothyroidism, unspecified; E04.2 Nontoxic multinodular goiter; Z91.81 History of falling; Z98.42 Cataract extraction status, left eye; Z98.41 Cataract extraction status, right eye
CPT/HCPCS: 36600; 70450; 70496; 70551; 71010; 71275; 80048; 80048 91; 80053; 80061; 80202; 81003; 82140; 82803; 82948; 83036; 83605; 83735; 83880; 84100; 84484; 85014; 85018; 85025; 85027; 85610; 85730; 86850; 86900; 86901; 86920; 87040; 87070; 87077; 87086; 87186; 87205; 87641; 88305; 93005; 94002; 94003; 94799; 95819; 99281; 99285; C1713; C1753; C1758; C9113; J0360; J0690; J0692; J0696; J1815; J1940; J1953; J2060; J2270; J2704; J3010; J3370; J3475; J3480; J7030; J7040; J7050; J7120; P9016